=== PATIENT | female | born 1985 | race Caucasian/White ===

== ENCOUNTER 2022-09-01 09:01 | Inpatient (IN) | payer BC ==
[~2022-09-01] VITALS: Ht 172.7 cm; Wt 82.7 kg
[2022-09-05] VITALS (47 sets, daily range): BP systolic 105–143; BP diastolic 54–99; PULSE 65–118; TEMP 97.4–98.2
--- NOTE | 2022-09-05 07:00 | NUR ---
PT ARRIVED ON UNIT AMBULATORY FOR SCHEDULED INDUCTION. PT DENIES CONTRACTIONS, LEAKING OF FLUID, OR VAGINAL BLEEDING. REPORTS NORMAL MOVEMENT. EFM AND TOCO MONTIORS STARTED. VITAL SIGNS WNL. PLAN OF CARE FOR INDUCTION REVIEWED.
[2022-09-05 08:12] LABS: BASO % 0.5 % (0.0-2.0); EOS # 0.2 K/mm3 (0.0-0.7); EOS % 2.8 % (0.0-4.0); GRAN # 6.2 K/mm3 (1.4-6.5); GRAN % 71.9 % (42.2-75.2); LYMPH # 1.6 K/mm3 (1.2-3.4); LYMPH % 18.2 % (20.0-51.0); MEAN CELL VOLUME 95 fl (80.0-100.0); MEAN CORPUSCULAR HEMOGLOBIN 32 pg (27-31); MEAN CORPUSCULAR HGB CONC 34 g/dl (33.0-37.0); MEAN PLATELET VOLUME 10.7 fl (7.4-10.4); MONO # 0.5 K/mm3 (0.1-0.6); MONO % 6.1 % (1.7-9.3); PLATELET COUNT 237 K/mm3 (130-400); RED BLOOD COUNT 3.71 M/mm3 (4.10-5.30)
[2022-09-05 08:13] LABS: HEMATOCRIT 35.1 % (37.0-47.0)
[2022-09-05] MEDS ORDERED: VALTREX1 GM PO (09:04)
--- NOTE | 2022-09-05 11:50 | NUR ---
BAN DE AT BEDSIDE. RISK AND BENEFITS ADDRESSED WITH PATIENT AND THE EPIDURAL CONSENT WAS SIGNED AND TIME OUT DONE. EFM INTERMITTENLY TRACEING MATERNAL HEART RATE CORRELATES WITH PULSE OX READINGS.
[2022-09-05] MEDS ORDERED: PERCOCET 325 MG1 TA2 PO ×2 (12:22)
--- NOTE | 2022-09-05 13:00 | NUR ---
Contractions not tracing. Attempted to adjust toco monitor.
--- NOTE | 2022-09-05 16:50 | NUR ---
PT COMPLETE, AWARE, ALEXIS D/C, IUPC REMOVED AND PUSHING STARTED.
--- NOTE | 2022-09-05 17:20 | NUR ---
Dr. Chavez at the bedside and pushing with pt. FHR tracing reviewed.
--- NOTE | 2022-09-05 18:15 | NUR ---
Bedside report received from Sanaz MATA. Pt continues pushing with this RN and ESPERANZA Wright at bedside. 182: at beside to assess pt's pushing. Provider remains in room pushing with pt and RN. 183: Pt pushing with provider. Decision made to place vacuum. Vacuum explained to pt and pt prepped for delivery and repositioned into footplates. 1846: Vacuum placed by , pressure to green and gentle traction applied by during pushes. 1847: Pressure released. 1847: Pressure to green and gentle traction applied by during pushes. 1848: Pressure released. 1849: Pressure to green and gentle traction applied by during pushes. 1850: Pressure released. 1850: Pressure to green and gentle traction applied by during pushes. 1851: Pressure released. 185: Pressure to green and gentle traction applied by . Vacuum assisted delivery of infants head at this time. Vacuum removed. Tight Nuchal X2 clamped and cut by provider. 1853: Following spontaneous delivery of viable male's body. to mothers chest where dried and stimulated by nursery RN. then to radiant warmer for further evaluation. Care of assumed of ESPERANZA Osborn. Pitocin stopped per protocol. 1901: Spontaneous delivery of intact placenta by . Pitocin restarted at 333mus/hr per protocol. First degree laceration and bilateral vaginal/labial laceration repaired by . 1908: Cytotec 600mg adminisetered by provider rectally. 1914: Straight catherization completed by provider. Pericare provider, pt repositioned in bed and ice pack applied to perineum. Plan of care and safety precautions explained to pt. Call light within reach.
[2022-09-06 02:57] VITALS: BP 99/64; PULSE 85; TEMP 98.4
[2022-09-06 07:45] VITALS: BP 118/77; PULSE 74; TEMP 97.9
--- NOTE | 2022-09-06 09:55 | NUR ---
Initial visit; Parents thanked Food Service Director for offering congratulations and God's blessings for the of their son. Food Service Director thanked family for choosing [place].
[2022-09-06 11:30] VITALS: BP 115/72; PULSE 89; TEMP 98.6
[2022-09-06 16:00] VITALS: BP 117/66; PULSE 90; TEMP 98.1
[2022-09-06 20:00] VITALS: BP 102/70; PULSE 81; TEMP 97.8
[2022-09-07 04:00] VITALS: BP 87/45; PULSE 62; TEMP 97.7
[2022-09-07 07:30] VITALS: BP 103/64; PULSE 76; TEMP 97.9
[2022-09-07] MEDS ORDERED: IBU600 MG PO (09:04)
[2022-09-07] MEDS ORDERED: ROXICODONE 55 MG/TAB PO (09:05)
--- NOTE | 2022-09-07 14:00 | NUR ---
DISCHARGE TEACHING COMPLETED. EDCUATED ON FOLLOW UP APPOINTMENT AND PRESCRIPTIONS. [facility] INVITED AND ANSWERED.
--- NOTE | 2022-09-07 15:05 | NUR ---
1505- PATIENT DISCHARGED AMBULATORY WITH SPOUSE CARRYING INFANT CARRIER.
== END 2022-09-07 15:05 | disposition home or self-care (01) | DRG 806 ==
LOC: LDR 09-05 06:42 → OB 09-05 06:42
PROVIDERS: ADMIT Obstetrics & Gynecology
PROC: 10D07Z6 Extraction of Products of Conception, Vacuum, Via Natural or Artificial Opening (ICD-10-PCS; principal; 2022-09-05)
PROC: 0KQM0ZZ Repair Perineum Muscle, Open Approach (ICD-10-PCS; 2022-09-05)
PROC: 10907ZC Drainage of Amniotic Fluid, Therapeutic from Products of Conception, Via Natural or Artificial Opening (ICD-10-PCS; 2022-09-05)
PROC: 3E033VJ Introduction of Other Hormone into Peripheral Vein, Percutaneous Approach (ICD-10-PCS; 2022-09-05)
PROC: 0UQMXZZ Repair Vulva, External Approach (ICD-10-PCS; 2022-09-05)
PROC: 10H07YZ Insertion of Other Device into Products of Conception, Via Natural or Artificial Opening (ICD-10-PCS; 2022-09-05)
DX: O76 Abnormality in fetal heart rate and rhythm complicating labor and delivery (principal); O98.32 Other infections with a predominantly sexual mode of transmission complicating childbirth; Z37.0 Single live birth; O99.344 Other mental disorders complicating childbirth; F41.9 Anxiety disorder, unspecified; Z3A.39 39 weeks gestation of pregnancy; Z86.16 Personal history of COVID-19; O69.81X0 Labor and delivery complicated by cord around neck, without compression, not applicable or unspecified; O70.1 Second degree perineal laceration during delivery; R51.9 Headache, unspecified; O90.89 Other complications of the puerperium, not elsewhere classified; A60.09 Herpesviral infection of other urogenital tract; Z23 Encounter for immunization
CPT/HCPCS: J0834; J2540; J2590; J7050; J7120